=== PATIENT | female | born 1985 | race Caucasian/White ===

== ENCOUNTER → 2018-03-27 | Outpatient (CLI) | payer MEDICAID, OTHER ==
[2018-03-27 12:22] LABS: BASOPHILS # (AUTO) 0.1 10^3/uL (0.0-0.1); BASOPHILS % (AUTO) 1.2 %; EOSINOPHILS # (AUTO) 0.1 10^3/uL (0.0-0.7); EOSINOPHILS % (AUTO) 1.1 %; HGB - HEMOGLOBIN 13.7 g/dL (12.0-16.0); LYMPHOCYTES # (AUTO) 2.1 10^3/uL (1.5-3.5); LYMPHOCYTES % (AUTO) 25.3 %; MEAN CORPUSCULAR HGB CONC 33.7 g/dL (32.0-36.0); MEAN CORPUSCULAR VOLUME 83.1 fL (81.0-99.0); MEAN PLATELET VOLUME 9.1 fL (7.9-10.8); MONOCYTES # (AUTO) 0.5 10^3/uL (0.0-1.0); NEUTROPHILS # (AUTO) 5.5 10^3/uL (1.5-6.6); NEUTROPHILS % (AUTO) 66.4 %; PLT - PLATELET COUNT 306 10^3/uL (130-450); RED CELL DISTRIBUTION WIDTH 14.3 % (12.0-15.0); WHITE BLOOD COUNT 8.2 x10^3/uL (4.8-10.8)
[2018-03-27 12:39] LABS: ALBUMIN 3.8 g/dL (3.2-5.5); ALKALINE PHOSPHATASE 79 IU/L (42-121); ALT ALANINE AMINOTRANSFERASE 17 IU/L (10-60); AST ASPARTATE AMINOTRANSFERASE 15 IU/L (10-42); BUN - BLOOD UREA NITROGEN 10 mg/dL (6-20); CALCIUM 8.6 mg/dL (8.5-10.3); CARBON DIOXIDE - CO2 24 mmol/L (21-32); CHLORIDE 107 mmol/L (101-111); CHOL/HDL RATIO 3.6 (<4.4); CHOLESTEROL 158 mg/dL; CREATININE 0.6 mg/dL (0.4-1.0); GFR - MDRD 117 (>89); GLUCOSE 92 mg/dL (70-100); HDL CHOLESTEROL 44 mg/dL; LDL CHOLESTEROL,CALCULATED 99 mg/dL; LDL/HDL RATIO 2.3 (<4.4); SODIUM 139 mmol/L (135-145); TOTAL PROTEIN 7.5 g/dL (6.7-8.2); VLDL CHOLESTEROL 15 mg/dL
== END ==
LOC: LAB.N 08:00
PROVIDERS: ATTEND Nurse Practitioner Gerontology
DX: Z13.9 Encounter for screening, unspecified (principal); E66.9 Obesity, unspecified
CPT/HCPCS: 36415; 80053; 80061; 83721; 84443; 85025

== ENCOUNTER 2020-02-05 18:07 | Outpatient (CLI) | payer OTHER ==
--- NOTE | 2020-02-05 22:31 | Ultrasound Report ---
PROCEDURE: Pelvic w/Transvaginal INDICATIONS: PELVIC PX TECHNIQUE: Real-time scanning was performed of the pelvic organs, with image documentation. Additional endovagi nal scanning was necessary due to incomplete visualization of the adnexal and endometrial structures by transabdominal scanning. COMPARISON: None. FINDINGS: Transabdominal scanning: Limited scanning through the kidneys shows no hydronephrosis. No pathologi c free abdominal or pelvic fluid. Endovaginal scanning: Uterus: Uterus is anteverted and normal in size at 7.8 x 5.7 x 3.8 cm. Myometrium appears heterogene ous. No uterine mass. The endometrium measures 4 mm in combined thickness. Small [place] cysts. Ovaries: Within normal limits. Right ovary measures 2.5 x 1.8 x 2 cm. Left ovary measures 2 x 1.8 x 1.7 cm. IMPRESSION: Exam is somewhat limited by acoustic windows. 1. Uterus is normal in size. No fibroids identified. 2. Normal endometrial thickness. 3. Sonographic appearance of the ovaries is normal. No free fluid. Reviewed by: Preston Bergman MD on 02/05/2020 10:30 PM PDT Approved by: Preston Bergman MD on 02/05/2020 10:30 PM PDT Station ID: [id number]
== END 2020-02-05 18:08 | disposition home or self-care (01) ==
LOC: DI 18:07
PROVIDERS: ATTEND Obstetrics & Gynecology
DX: N83.291 Other ovarian cyst, right side (principal)
CPT/HCPCS: 76830; 76856

== ENCOUNTER 2020-04-17 15:31 | Outpatient (CLI) | payer OTHER ==
--- NOTE | 2020-04-18 11:09 | Mammography Report ---
BILATERAL DIGITAL SCREENING MAMMOGRAM 3D/2D: 04/17/2020 CLINICAL: Baseline exam. Family history of breast cancer. Routine screening. No prior exams were available for comparison. The tissue of both breasts is heterogeneously dense. T his may lower the sensitivity of mammography. There is a 1 cm oval focal asymmetry with an obscured and circumscribed margin in the right breast at 3 o'clock anterior depth. No other significant masses, calcifications, or other findings are seen in either breast. IMPRESSION: INCOMPLETE: NEEDS ADDITIONAL IMAGING EVALUATION The 1 cm oval focal asymmetry in the right breast is indeterminate. Additional views with possible u ltrasound are recommended. This exam was interpreted at Station ID: [id number]. NOTE: For mammograms, a report in lay terms will be sent to the patient. Approximately 15% of breast malignancies will not be visualized mammographically. In the management of a palpable breast mass, a negative mammogram must not discourage biopsy of a clinically suspicious lesion. Electronically Signed By: Medina boyd/rosaleerad:04/17/2020 17:40:09 ACR BI-RADS Category 0: Incomplete 3340F PARENCHYMAL PATTERN: (D) - The breast(s) demonstrate(s) heterogeneously dense fibroglandular parhumay ma. BI-RADS CATEGORY: (0) - 0 Mammo and [place] [id number] Immediate follow-up LATERALITY: (B)
== END 2020-04-17 15:32 | disposition home or self-care (01) ==
LOC: DI 15:31
PROVIDERS: ATTEND Obstetrics & Gynecology
DX: Z12.31 Encounter for screening mammogram for malignant neoplasm of breast (principal); R92.8 Other abnormal and inconclusive findings on diagnostic imaging of breast; Z80.3 Family history of malignant neoplasm of breast
CPT/HCPCS: 77063; 77067

== ENCOUNTER 2020-05-23 15:00 | Outpatient (CLI) | payer OTHER ==
--- NOTE | 2020-05-30 09:43 | Mammography Report ---
UNILATERAL RIGHT DIGITAL DIAGNOSTIC MAMMOGRAM 3D/2D: 05/23/2020 CLINICAL: Patient returns today to evaluate a focal asymmetry in the right breast. Comparison is made to exam dated: 04/17/2020 mammogram - [facility]. The tissue of right breast is heterogeneously dense. This may lower the sensitivity of mammography. There is an oval focal asymmetry in the right breast at 1 o'clock middle depth. This is seen in neo tional views. No other significant masses or calcifications are seen in the breast. IMPRESSION: INCOMPLETE: NEEDS ADDITIONAL IMAGING EVALUATION The oval focal asymmetry in the right breast is indeterminate. A targeted ultrasound of the right hung ast is recommended and will be performed immediately following this exam. This exam was interpreted at Station ID: [id number]. NOTE: For mammograms, a report in lay terms will be sent to the patient. Approximately 15% of breast malignancies will not be visualized mammographically. In the management of a palpable breast mass, a negative mammogram must not discourage biopsy of a clinically suspicious lesion. Electronically Signed By: Sonia Boyce M.D. lk/:05/23/2020 16:24:26 ACR BI-RADS Category 0: Incomplete 3340F PARENCHYMAL PATTERN: (D) - The breast(s) demonstrate(s) heterogeneously dense fibroglandular chacho glaser. BI-RADS CATEGORY: (0) - 0 Ultrasound [id number] Immediate follow-up LATERALITY: (B)
--- NOTE | 2020-05-30 09:43 | Ultrasound Report ---
LIMITED ULTRASOUND OF RIGHT BREAST: 05/23/2020 CLINICAL: Short term follow up of the right breast. Comparison is made to exam dated 04/17/2020 Color flow and real-time ultrasound of the right breast 1-2 o'clock region were performed on the area s of interest. Morgan scale images of the real-time examination were reviewed. There are 2 adjacent 1 cm oval masses in the right breast superior medial quadrant middle depth. The se masses are hypoechoic with posterior acoustic enhancement. One of these likely correlate with joao mography findings. IMPRESSION: PROBABLY BENIGN Two adjacent oval masses in the right breast likely represent fibroadenomas and are probably benign. A follow-up mammogram and an ultrasound in 6 months is recommended to demonstrate stability. This exam was interpreted at Station ID: [id number]. Electronically Signed By: Sonia Boyce M.D. lk/:05/30/2020 09:34:46 Entry: - 05/30/2020 09:34:46 Ultrasound BI-RADS: 3 Probably benign BI-RADS CATEGORY: (3) - 3 Mammo and [place] [id number] 6 month follow-up LATERALITY: (B)
== END 2020-05-23 15:01 | disposition home or self-care (01) ==
LOC: DI 15:00
PROVIDERS: ATTEND Obstetrics & Gynecology
DX: N63.11 Unspecified lump in the right breast, upper outer quadrant (principal)
CPT/HCPCS: 76642

== ENCOUNTER 2022-07-11 18:06 | Emergency (ER) | payer OTHER ==
[2022-07-11 18:14] VITALS: BP 145/100
--- NOTE | 2022-07-11 18:43 | XRAY Report ---
PROCEDURE: Hand 3 View RT INDICATIONS: hand inj TECHNIQUE: 3 views of the hand acquired. COMPARISON: None. FINDINGS: Bones: No acute fractures or dislocations. No suspicious bony lesions. Soft tissues: No suspicious soft tissue calcifications. IMPRESSION: No acute osseous abnormality. If there is clinical concern or persistent symptoms, additional imaging such as repeat radiographs or advanced imaging (e.g. CT, MRI) may be helpful for further evaluation. Reviewed by: Anderson Barnes MD on 07/11/2022 6:41 PM PST Approved by: Anderson Barnes MD on 07/11/2022 6:41 PM PST Station ID: [id number]
--- NOTE | 2022-07-11 18:49 | ED Physician Documentation ---
PD HPI UPPER EXT INJURY - Stated complaint Stated Complaint: R SIDE 3-FINGERS INJ - Chief complaint Chief Complaint: Trauma Ext - History obtained from History obtained from: Patient - Additonal information Additional information: She was playfully roughhousing with her and her third fourth and fifth fingers of the right dominant hand got bent back and she has moderate pain there. Declines pain medication. Review of Systems Constitutional: reports: Reviewed and negative Nose: reports: Reviewed and negative Throat: reports: Reviewed and negative Cardiac: reports: Reviewed and negative PD PAST MEDICAL HISTORY - Past Surgical History Past Surgical History: Yes General: Cholecystectomy, Appendectomy Neuro: FIELD MERCHANDISER shunt - Present Medications Home Medications: Ambulatory Orders Medication Instructions Recorded Confirmed Medroxyprogesterone Acetate 150 mg IM Q90D 09/21/15 07/11/22 [Depo-Provera] - Allergies Allergies/Adverse Reactions: Allergies Allergy/AdvReac Type Severity Reaction Status Date / Time No Known Drug Allergies Allergy Verified 07/11/22 18:14 - Social History Does the pt smoke?: No Smoking Status: Never smoker Does the pt drink ETOH?: No Does the pt have substance abuse?: No - Immunizations Immunizations are current?: No - POLST Patient has POLST: No PD ED PE NORMAL - Vitals Vital signs reviewed: Yes - General General: Alert and oriented X 3, No acute distress - Back Back: No CVA TTP, No spinal TTP - Derm Derm: Normal color, Warm and dry - Extremities Extremities: Other (Tenderness without swelling of the third fourth and fifth metacarpals and proximal phalanges. No deformity. Limited range of motion due to pain. No neurovascular deficit in any of the fingers.) - Neuro Neuro: Alert and oriented X 3, Normal speech Results - Vitals Vitals: Vital Signs - 24 hr 07/11/22 18:11 Temperature 36.8 C Heart Rate 101 H Respiratory 16 Rate Blood Pressure 145/100 H O2 Saturation 100 Oxygen O2 Source Room air - Rads (name of study) Three-view x-ray of the right hand is unremarkable Radiology: Final report received, EMP read indepedently Departure - Departure Disposition: 01 Home, Self Care Clinical Impression: Sprain of right middle finger Qualifiers: Encounter type: initial encounter Sprain of finger site: metacarpophalangeal joint Qualified Code(s): S63.652A - Sprain of metacarpophalangeal joint of right middle finger, initial encounter Sprain of right ring finger Qualifiers: Encounter type: initial encounter Sprain of finger site: metacarpophalangeal joint Qualified Code(s): S63.654A - Sprain of metacarpophalangeal joint of right ring finger, initial encounter Sprain of right little finger Qualifiers: Encounter type: initial encounter Sprain of finger site: metacarpophalangeal joint Qualified Code(s): S63.656A - Sprain of metacarpophalangeal joint of right little finger, initial encounter Condition: Good Record reviewed to determine appropriate education?: Yes Instructions: ED Sprain Finger Comments: Recheck with your doctor in a week if not better, return for new or worsening symptoms. Tylenol and/or ibuprofen as needed for pain. Ice and elevate generally.
== END 2022-07-11 19:15 | disposition home or self-care (01) ==
LOC: ED 18:06
DX: S63.652A Sprain of metacarpophalangeal joint of right middle finger, initial encounter (principal); S63.654A Sprain of metacarpophalangeal joint of right ring finger, initial encounter; S63.656A Sprain of metacarpophalangeal joint of right little finger, initial encounter; X50.1XXA Overexertion from prolonged static or awkward postures, initial encounter; Y93.83 Activity, rough housing and horseplay
CPT/HCPCS: 99282; 99283